=== PATIENT | male | born 1980 | race Caucasian/White ===

== ENCOUNTER 2016-09-08 17:09 | Emergency (ER) | payer OTHER ==
[~2016-09-08] VITALS: Ht 175.3 cm; Wt 95.3 kg
[2016-09-08 18:16] LABS: ABSOLUTE BASOPHIL COUNT 0 /CUMM (0.0-0.2); ABSOLUTE EOSINOPHIL COUNT 0.1 /CUMM (0.0-0.7); ABSOLUTE GRANULOCYTE CT 7.8 /CUMM (1.4-6.5); ABSOLUTE LYMPH COUNT 1.9 /CUMM (1.2-3.4); ABSOLUTE MONOCYTE COUNT 0.7 /CUMM (0.10-0.60); BASOPHIL % 0.5 % (0.0-2.0); EOSINOPHIL % 0.9 % (0-5); GRANULOCYTE % 74.3 % (42.2-75.2); HEMATOCRIT 49.8 % (42-52); MEAN CORPUSCULAR HGB 29.5 PG (27.0-31.0); MEAN CORPUSCULAR VOLUME 86.9 FL (80.0-94.0); MEAN PLATELET VOLUME 9.4 FL (7.4-10.4); PLATELET COUNT 174 /CUMM (130-400); RBC DISTRIBUTION WIDTH 13.1 % (11.5-14.5); RED BLOOD CELL CT 5.73 /CUMM (4.70-6.10); WHITE BLOOD CELL COUNT 10.5 /CUMM (4.8-10.8)
--- NOTE | 2016-09-08 19:23 | ED CARDIAC/CP/PALPITATIONS ---
History of Present Illness General Chief Complaint: Chest Pain Stated Complaint: CP, L ARM NUMBNESS Source: patient, family Exam Limitations: no limitations Vital Signs & Intake/Output Vital Signs & Intake/Output Vital Signs Date Time Temp Pulse Resp B/P Pulse O2 O2 Flow FiO2 Ox Delivery Rate 09/08 1920 94 Room Air 09/08 1919 89 12 120/87 94 Room Air 09/08 1811 99.5 86 16 129/81 95 Room Air Allergies Coded Allergies: Penicillins (HIVES 09/08/16) amoxicillin (HIVES 09/08/16) animal dander (MAY TRIGGER ASTHMA 09/08/16) Reconcile Medications Albuterol Sulfate (Proair Hfa) 90 MCG HFA.AER.AD 2 PUF INH Q4-6 PRN PRN ASTHMA (Reported) Atorvastatin Calcium (Unknown Strength) TABLET (Unknown Dose) UNKNOWN ( Reported) Beclomethasone Dipropionate (QVAR) 80 MCG AER.W.ADAP 2 PUF INH BID ASTHMA ( Reported) Triage Note: PT WENT TO THE GYM ABOUT 1330 AND HAD TO STOP HIS WORKOUT BECAUSE HE DIDN'T FEEL RIGHT. PT WENT HOME DRANK SOME WATER TOOK A SHOWER AND THEN STARTED HAVING SOB AND TOOK TWO PUFFS OF HIS INHALER AND WALKED DOWN STAIRS AND STATES HE HAD CHEST TIGHTNESS LIGHT SOMEONE WAS SITTING ON HIS CHEST AND DIAPHORESIS. BEGAN TO HAVE MORE SOB AND THEN HE CAME TO ED. Triage Nurses Notes Reviewed? yes HPI: Patient is a 36-year-old male presents complaining of chest tightness and dyspnea. This reports he was at the gym today when he "felt crappy". This was at 3 PM today. Patient had mild dyspnea at that time. Patient used his inhaler as he thought that it may be exercise-induced asthma with no improvement. At home patient felt mild increase in his dyspnea, was walking downstairs when he felt near-syncope sensation. Then at approximately 4 PM today developed chest heaviness. The chest heaviness lasted for approximately 30 minutes and then improved. Chest heaviness is 1 out of 10 currently. Patient's father had a myocardial infarction in his early 40s. Patient has an appointment to see a court registry officer 1 week from today. (JIM CARDENAS,OBDULIO) Past History Travel History Traveled to [place] past 21 day No Medical History Any Pertinent Medical History? see below for history Cardiovascular: hyperlipidemia, hypertriglyceridemia Respiratory: asthma Surgical History Surgical History: non-contributory Psychosocial History What is your primary language Icelandic Tobacco Use: Never used ETOH Use: denies use Illicit Drug Use: denies illicit drug use Family History Hx Contributory? Yes (father ALMA's in his early 40's) (OBDULIO KNOWLES) Review of Systems Review of Systems Constitutional: Reports: diaphoresis (resolved). Denies: chills, fever. EENTM: Reports: no symptoms. Respiratory: Reports: short of breath. Denies: cough. Cardiovascular: Reports: see HPI. GI: Denies: abdominal pain, nausea, vomiting. Musculoskeletal: Denies: back pain, neck pain. Skin: Reports: no symptoms. Neurological/Psychological: Reports: no symptoms. Hematologic/Endocrine: Reports: no symptoms. Immunologic/Allergic: Reports: no symptoms. (OBDULIO KNOWLES) Physical Exam Physical Exam General Appearance: well developed/nourished, alert, awake Head: atraumatic, normal appearance Eyes: Bilateral: normal appearance, PERRL, EOMI. Ears, Nose, Throat: normal pharynx, normal ENT inspection, hearing grossly normal Neck: normal inspection, supple, full range of motion Respiratory: normal breath sounds, chest non-tender, no respiratory distress, lungs clear Cardiovascular: regular rate/rhythm (NO APPRECIABLE MURMUR) Peripheral Pulses: 2+ radial (R), 2+ radial (L) Gastrointestinal: soft, non-tender Back: normal inspection, normal range of motion Extremities: normal inspection, normal capillary refill, normal range of motion, no edema Neurologic/Psych: no motor/sensory deficits, awake, alert, oriented x 3, normal gait, normal mood/affect Skin: intact, normal color, warm/dry Lymphatic: no anterior cervical mohsen Core Measures ACS in differential dx? Yes ASA ordered for poss ACS? No-ACS ruled out Severe Sepsis Present: No Septic Shock Present: No (OBDULIO KNOWLES) Progress Differential Diagnosis: AMI, aortic dissection, atrial fibrillation, myocarditis , pericarditis, pneumonia, pulmonary embolism, unstable angina, cardiomyopathy Diagnostic Imaging: Viewed by Me: Radiology Read. Discussed w/RAD: Radiology Read. Radiology Impression: PATIENT: OBDULIO TURNER PRESENT AGE: 36 PATIENT ACCOUNT NO: [id number] : 80 LOCATION: [facility] ORDERING PHYSICIAN: OBDULIO CARDENAS SERVICE DATE: 09/08/16 EXAM TYPE: RAD - XRY-CHEST XRAY, PA AND LATERAL EXAMINATION: XR CHEST CLINICAL INFORMATION: Chest pain. COMPARISON: None. TECHNIQUE: PA and lateral views of the chest were obtained. FINDINGS: Cardiomediastinal silhouette is within normal limits. Lungs are clear. Bony thorax is intact. IMPRESSION: No acute pulmonary disease. DICTATED BY: YOSELIN BROWN MD DATE/TIME DICTATED:09/08/162001 SHOT DROPPER:ROEL DATE/TIME TRANSCRIBED:09/08/162001 CONFIDENTIAL, DO NOT COPY WITHOUT APPROPRIATE AUTHORIZATION. <Electronically signed in Other Vendor System> SIGNED BY: YOSELIN BROWN MD 09/08/162005 Initial ED EKG: normal sinus rhythm 91 bpm normal axis, left anterior fascicular block, no acute ST/T-wave abnormalities Repeat EKG: unchanged Rhythm Strip: normal sinus rhythm (JIM CARDENAS,OBDULIO) Plan of Care: Orders Procedure Date/time Status TROPONIN LEVEL 09/08 2100 Active EKG 09/08 2100 Active Telemetry/Echo Vascular Technologist 09/08 193 Active Add-on Test (ER Only) 09/08 193 Active D-DIMER 09/08 1735 Complete TROPONIN LEVEL 09/08 1726 Complete COMPREHENSIVE METABOLIC PANEL 09/08 1726 Complete CBC WITHOUT DIFFERENTIAL 09/08 1726 Complete EKG 09/08 1711 Active Laboratory Tests 09/08/16 2055: Troponin I Pending 09/08/16 1735: Anion Gap 15, Estimated GFR > 60, BUN/Creatinine Ratio 19.1, Glucose 92, Calcium 9.9, Total Bilirubin 0.9, AST 32, ALT 55, Alkaline Phosphatase 56, Troponin I < 0.01, Total Protein 7.7, Albumin 4.9, Globulin 2.8, Albumin/Globulin Ratio 1.8, D-Dimer < 200, CBC w Diff NO MAN DIFF REQ, RBC 5.73, MCV 86.9, MCH 29.5, RDW 13.1, MPV 9.4, Gran % 74.3, Lymphocytes % 18.0 L, Monocytes % 6.3, Eosinophils % 0.9, Basophils % 0.5, Absolute Granulocytes 7.8 H, Absolute Lymphocytes 1.9, Absolute Monocytes 0.7 H, Absolute Eosinophils 0.1, Absolute Basophils 0, PUBS MCHC 34.0 2020: Patient resting comfortably. Reports that chest pain is minimal. No arrhythmias on playground monitor. Will obtain repeat ekg and troponin. Signed out to Dr. Francois at 2099 with repeat troponin pending. (OBDULIO KNOWLES) Departure Departure Disposition: HOME OR SELF CARE Condition: Stable Clinical Impression Primary Impression: Chest pain Qualifiers: Chest pain type: unspecified Qualified Code: R07.9 - Chest pain, unspecified Referrals: JERALD ESPOSITO MD (PCP/Family) Additional Instructions: Follow up with the court registry officer appointment Thursday as scheduled. Return to the ER if chest pain worsening, breathing worsening or any worsening of symptoms. Departure Forms: Customer Survey General Discharge Information (OBDULIO KNOWLES) PA/BACKBREAKER Co-Sign Statement Statement: ED Attending supervision documentation- [X] I saw and evaluated the patient. I have also reviewed all the pertinent lab results and diagnostic results. I agree with the findings and the plan of care as documented in the PA's/BACKBREAKER's documentation. [X] I have reviewed the ED Record and agree with the PA's/BACKBREAKER's documentation. [] Additions or exceptions (if any) to the PAs/BACKBREAKER's note and plan are summarized below: [] (SAM SCHULTZ,JOSE MANUEL Salinas) Critical Care Note Critical Care Note Critical Care Time: non-applicable (OBDULIO KNOWLES)
[2016-09-08] MEDS ORDERED: PROAIR HFA8.5 GM INH (19:34)
[2016-09-08] MEDS ORDERED: QVAR8.7 G1 INH (19:34)
[2016-09-08] MEDS ORDERED: ATORVASTATIN CA80 M1 (19:34)
--- NOTE | 2016-09-08 20:06 | RADIOLOGY REPORT ---
EXAMINATION: XR CHEST CLINICAL INFORMATION: Chest pain. COMPARISON: None. TECHNIQUE: PA and lateral views of the chest were obtained. FINDINGS: Cardiomediastinal silhouette is within normal limits. Lungs are clear. Bony thorax is intact. IMPRESSION: No acute pulmonary disease.
[2016-09-08 22:04] VITALS: BP 126/71
== END 2016-09-08 22:05 ==
LOC: ERH 17:09
PROVIDERS: Emergency Medicine
DX: R07.9 Chest pain, unspecified (principal)
CPT/HCPCS: 93005; 93010